=== PATIENT | male | born 2000 | race Two or more races ===

== ENCOUNTER 2024-10-23 17:36 | Emergency (ER) | payer MEDICAID, OTHER ==
[~2024-10-23] VITALS: Ht 162.6 cm; Wt 81.6 kg
--- NOTE | 2024-10-23 18:19 | DVH ---
CLINICAL INFORMATION: Pain status post fall injury. TECHNIQUE: 2 views of the right lower leg were obtained. COMPARISON: None FINDINGS: No acute fracture or dislocation. No significant arthropathy. Adjacent soft tissues are unr emarkable. IMPRESSION: No evidence of acute bony abnormality.
[2024-10-23 20:44] VITALS: BP 108/70; PULSE 61; RESP 16; TEMP 98.3; O2SAT 99
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
== END 2024-10-23 20:45 | disposition home or self-care (01) ==
LOC: ER 17:36
DX: S86.911A Strain of unspecified muscle(s) and tendon(s) at lower leg level, right leg, initial encounter (principal); V86.59XA Driver of other special all-terrain or other off-road motor vehicle injured in nontraffic accident, initial encounter; Y93.89 Activity, other specified; Y92.410 Unspecified street and highway as the place of occurrence of the external cause; Y99.8 Other external cause status
CPT/HCPCS: 73590